=== PATIENT | male | born 1960 | race Caucasian/White ===

== ENCOUNTER 2016-05-25 13:57 | Emergency (ER) | payer OTHER ==
[~2016-05-25 13:57] MED LIST: DOXYCYCLINE HY100 M1 PO; FLEXERIL10 MG PO; KEFLEX500 M1 PO; LORTAB 5/500 TA1 TA1 PO; MEDROL4 MG/DOSE- PO; PAXIL; VICODIN 5/1 TAB 5/50 PO
== END 2016-05-25 14:05 | disposition home or self-care (01) ==
LOC: CED 13:57
DX: M54.5 Low back pain (principal); G89.29 Other chronic pain; I87.2 Venous insufficiency (chronic) (peripheral); I73.9 Peripheral vascular disease, unspecified
CPT/HCPCS: 99283